=== PATIENT | female | born 1985 | race Caucasian/White ===

== ENCOUNTER 2020-11-05 17:36 | Emergency (ER) | payer BC, OTHER ==
[~2020-11-05] VITALS: Ht 152.4 cm; Wt 84.1 kg
--- NOTE | 2020-11-05 19:19 | REP ---
INDICATION: ?retained products. COMPARISON: Comparison pelvic sonography is from a June 17, 2009.. TECHNIQUE: Transabdominal and transvaginal scanning were performed. FINDINGS: Uterine dimensions are normal at 9.2 x 4.4 x 5.4 cm. Endometrial echo is 1.2 cm thick and centrally placed. No free fluid is seen in the cul-de-sac. Visualized bladder sandoval are smooth. No focal uterine mass lesion is seen. Endometrium is somewhat heterogeneous. No evidence of endometrial mass or hyperechoic tissue to suggest retained products of conception however. The right ovary has dimensions of 4.3 x 3.8 x 3.8 cm. It's Doppler flow is normal with a resistive index of 0.43. There is a 3.7 x 3.2 x 3.3 cm right ovarian cyst. The left ovary dimensions are normal as well at 4.6 x 3.6 x 4.2 cm. It's Doppler flow was normal with resistive index of 0.64. There is a complex cystic structure in the left ovary measuring 3.7 x 3.4 x 2.8 cm. This contains septations. IMPRESSION: Unremarkable uterus. There is a simple cyst in the right ovary measuring 3.7 cm. Complex cystic lesion is seen in the left ovary measuring 3.7 cm as well. No free fluid.. <Electronically signed by Riki Kaiser > 11/05/201915
[2020-11-05 20:25] LABS: BASO # 0.1 10^3/uL (0.0-0.2); BASO % 0.7 % (0.0-1.0); EOS # 0.1 10^3/uL (0.0-0.5); EOS % 1.7 % (0.0-3.0); HEMATOCRIT 31.8 % (36.0-47.0); HEMOGLOBIN 9.4 g/dl (12.0-15.5); LYMPH # 1.7 10^3/uL (1.5-5.0); LYMPH % 24.8 % (24.0-44.0); MEAN CORPUSCULAR HGB CONC 29.6 g/dl (32.0-36.5); MEAN CORPUSCULAR VOLUME 77.8 fl (80.0-96.0); MONO # 0.7 10^3/uL (0.0-0.8); MONO % 10.3 % (2.0-8.0); NEUTROPHILS # 4.4 10^3/uL (1.5-8.5); NEUTROPHILS % 62.2 % (36.0-66.0); PLATELET COUNT, AUTOMATED 253 10^3/uL (150-450); RED BLOOD COUNT 4.09 10^6/uL (4.00-5.40)
[2020-11-05 20:48] LABS: BLOOD UREA NITROGEN 10 MG/DL (7-18); CALCIUM LEVEL 9.1 MG/DL (8.5-10.1); CARBON DIOXIDE LEVEL 29 MEQ/L (21-32); CHLORIDE LEVEL 107 MEQ/L (98-107); CREATININE FOR GFR 0.55 MG/DL (0.55-1.30); GLOMERULAR FILTRATION RATE > 60.0 (>60); GLUCOSE, FASTING 86 MG/DL (70-100); HCG, SERUM QUANTITATIVE 67 MIU/ML; POTASSIUM SERUM 3.8 MEQ/L (3.5-5.1); SODIUM LEVEL 141 MEQ/L (136-145)
[2020-11-05 21:01] VITALS: BP 133/68
== END 2020-11-05 21:02 | disposition home or self-care (01) ==
LOC: M ED 17:36
DX: N83.299 Other ovarian cyst, unspecified side (principal); D50.9 Iron deficiency anemia, unspecified; R56.9 Unspecified convulsions; J45.909 Unspecified asthma, uncomplicated; F41.9 Anxiety disorder, unspecified

== ENCOUNTER → 2021-06-03 | Outpatient (REF) | LOC: M LABSMTC 10:22 | PROVIDERS: ATTEND Family Medicine | DX: Z20.822 Contact with and (suspected) exposure to COVID-19 (principal) ==

== ENCOUNTER → 2021-08-11 | Outpatient (CLI) | payer BC ==
--- NOTE | 2021-08-11 17:23 | REP ---
INDICATION: PELVIC AND PERINEAL PAIN COMPARISON: 11/05/2020 TECHNIQUE: Transabdominal pelvic ultrasound followed by transvaginal examination for better evaluation of the endometrium and adnexa with color Doppler evaluation of the ovaries. FINDINGS: Bladder is unremarkable and measures 4.8 x 4.0 x 6.4 cm. Normal anteverted uterus measures 7.9 x 3.7 x 4.6 cm. The endometrial complex measures 11.1 mm thickness. No discrete uterine or endometrial abnormalities are appreciated. Bilateral ovaries are normal in appearance and vascularity without evidence for torsion. Right ovary measures 2.9 x 2.1 x 2.6 cm; R I = 0.56. Left ovary measures 2.9 x 1.6 x 2.2 cm; R I = 0.56. No pelvic fluid or adnexal mass lesion. IMPRESSION: Normal pelvic ultrasound. Previously noted simple and complex ovarian cysts have resolved. <Electronically signed by Rene Rod > 08/11/21 [id number]
== END ==
LOC: M RAD 16:40
PROVIDERS: ATTEND Advanced Practice Midwife
DX: R10.2 Pelvic and perineal pain (principal)

== ENCOUNTER → 2021-09-16 | Outpatient (REF) | LOC: M LABSMTC 10:47 | PROVIDERS: ATTEND Family Medicine | DX: Z20.822 Contact with and (suspected) exposure to COVID-19 (principal) ==

== ENCOUNTER → 2021-09-19 | Outpatient (REF) | LOC: M LABSMTC 10:10 | PROVIDERS: ATTEND Family Medicine | DX: Z20.828 Contact with and (suspected) exposure to other viral communicable diseases (principal) ==

== ENCOUNTER 2022-05-25 11:37 | Emergency (ER) | payer BC ==
[~2022-05-25] VITALS: Ht 165.1 cm; Wt 79.6 kg
[2022-05-25 12:11] LABS: BASO # 0.1 10^3/uL (0.0-0.2); BASO % 0.9 % (0.0-1.0); EOS # 0.1 10^3/uL (0.0-0.5); EOS % 1.4 % (0.0-3.0); HEMATOCRIT 31.4 % (36.0-47.0); LYMPH # 1.1 10^3/uL (1.5-5.0); LYMPH % 19.8 % (24.0-44.0); MEAN CORPUSCULAR HEMOGLOBIN 21.8 pg (27.0-33.0); MEAN CORPUSCULAR HGB CONC 28.7 g/dl (32.0-36.5); MEAN CORPUSCULAR VOLUME 76.2 fl (80.0-96.0); MONO # 0.5 10^3/uL (0.0-0.8); MONO % 8.9 % (2.0-8.0); NEUTROPHILS # 3.9 10^3/uL (1.5-8.5); NEUTROPHILS % 68.8 % (36.0-66.0); PLATELET COUNT, AUTOMATED 265 10^3/uL (150-450); RED BLOOD COUNT 4.12 10^6/uL (4.00-5.40); WHITE BLOOD COUNT 5.6 10^3/uL (4.0-10.0)
[2022-05-25 12:32] LABS: HCG, SERUM QUALITATIVE NEGATIVE (NEGATIVE); INR 1.04; PROTHROMBIN TIME 13.8 SECONDS (12.5-14.5)
[2022-05-25 12:33] LABS: PARTIAL THROMBOPLASTIN TIME 28.9 SECONDS (24.8-34.2)
[2022-05-25 12:48] LABS: ALBUMIN 3.9 GM/DL (3.2-5.2); ALT/SGPT 23 U/L (12-78); BILIRUBIN,DIRECT 0.2 MG/DL (0.0-0.2); BILIRUBIN,TOTAL 0.6 MG/DL (0.2-1.0); BLOOD UREA NITROGEN 7 MG/DL (7-18); CALCIUM LEVEL 8.9 MG/DL (8.5-10.1); CARBON DIOXIDE LEVEL 27 MEQ/L (21-32); CHLORIDE LEVEL 105 MEQ/L (98-107); CREATININE FOR GFR 0.59 MG/DL (0.55-1.30); FREE T4 0.84 NG/DL (0.76-1.46); GLOMERULAR FILTRATION RATE > 60.0 (>60); GLUCOSE, FASTING 83 MG/DL (70-100); LIPASE 140 U/L (73-393); SODIUM LEVEL 140 MEQ/L (136-145); TOTAL PROTEIN 7.1 GM/DL (6.4-8.2)
[2022-05-25 12:51] LABS: CPK CREATINE PHOSPHOKINASE 46 U/L (26-192); D-DIMER QUANT 344.29 ng/ml (<500)
[2022-05-25 13:09] VITALS: BP 121/71
== END 2022-05-25 13:24 | disposition home or self-care (01) ==
LOC: M ED 11:37
DX: R07.89 Other chest pain (principal); D64.9 Anemia, unspecified; R00.2 Palpitations; R56.9 Unspecified convulsions; F41.9 Anxiety disorder, unspecified; Z82.49 Family history of ischemic heart disease and other diseases of the circulatory system

== ENCOUNTER → 2022-10-18 | Outpatient (CLI) | payer BC ==
[2022-10-18 10:46] LABS: HEMATOCRIT 36.3 % (36.0-47.0); HEMOGLOBIN 11.3 g/dl (12.0-15.5); MEAN CORPUSCULAR HEMOGLOBIN 24.4 pg (27.0-33.0); MEAN CORPUSCULAR HGB CONC 31.1 g/dl (32.0-36.5); MEAN CORPUSCULAR VOLUME 78.4 fl (80.0-96.0); PLATELET COUNT, AUTOMATED 206 10^3/uL (150-450); RED BLOOD COUNT 4.63 10^6/uL (4.00-5.40); WHITE BLOOD COUNT 3.9 10^3/uL (4.0-10.0)
[2022-10-18 11:05] LABS: BLOOD UREA NITROGEN 13 MG/DL (9-23); CALCIUM LEVEL 9.2 MG/DL (8.5-10.1); CARBON DIOXIDE LEVEL 29 MMOL/L (20-31); CHLORIDE LEVEL 105 MMOL/L (98-107); CHOLESTEROL LEVEL 170 MG/DL (<200); CHOLESTEROL RISK RATIO 2.33 (<5); CREATININE FOR GFR 0.56 MG/DL (0.55-1.30); GLOMERULAR FILTRATION RATE > 60.0 (>60); GLUCOSE, FASTING 82 MG/DL (60-100); HDL CHOLESTEROL 72.8 MG/DL (>40); IRON (FE) 22 UG/DL (50-170); LDL CHOLESTEROL 85.6 MG/DL (<100); NON-HDL-C 97 MG/DL; PERCENT SATURATION 5.6 % (13.2-45.0); POTASSIUM SERUM 4.4 MMOL/L (3.5-5.1); SODIUM LEVEL 139 MMOL/L (136-145); TOTAL IRON BINDING CAPACITY 391 UG/DL (250-425); TRIGLYCERIDES LEVEL 58 MG/DL (<150)
[2022-10-18 11:07] LABS: FERRITIN 3.8 NG/ML (7.3-270.7); TOTAL 25(OH) VITAMIN D 36.3 NG/ML (20.0-100.0)
== END ==
LOC: M LAB 09:11
PROVIDERS: ATTEND Nurse Practitioner Family
DX: F41.9 Anxiety disorder, unspecified (principal)

== ENCOUNTER → 2022-10-20 | Outpatient (REF) | payer BC ==
[2022-10-20 17:47] LABS: FOLATE 22.39 NG/ML (>5.4)
== END ==
LOC: M SFHCCLAY 14:32
PROVIDERS: ATTEND Nurse Practitioner Family
DX: D50.9 Iron deficiency anemia, unspecified (principal)

== ENCOUNTER 2022-11-17 09:02 | Outpatient (CLI) | payer BC ==
[~2022-11-17] VITALS: Ht 152.4 cm; Wt 75.9 kg
[~2022-11-17 09:02] MED LIST: IRON SUCROSE 25 MG in NS 23.75 ML IV ONE; IRON SUCROSE 475 MG in NS 250 ML IV ONE
[2022-11-17] MEDS ORDERED: IRON SUCROSE 475 MG in NS 250 ML IV ONE (09:30)
[2022-11-17] MEDS ORDERED: IRON SUCROSE 25 MG in NS 23.75 ML IV ONE (09:30)
[2022-11-17 09:33] VITALS: BP 120/56
[2022-11-17 10:40] VITALS: BP 118/60
[2022-11-17 11:45] VITALS: BP 121/58
[2022-11-17 13:00] VITALS: BP 116/61
[2022-11-17 14:30] VITALS: BP 119/67
== END 2022-11-17 14:30 | disposition home or self-care (01) ==
LOC: M INFU 09:02
PROVIDERS: ATTEND Nurse Practitioner Family
DX: D50.9 Iron deficiency anemia, unspecified (principal)
CPT/HCPCS: 96365; J1756

== ENCOUNTER 2023-02-05 17:17 | Emergency (ER) | payer BC ==
[~2023-02-05] VITALS: Ht 152.4 cm; Wt 75.8 kg
[2023-02-05 18:51] LABS: APPEARANCE, URINE CLEAR (CLEAR); BACTERIA, URINE AUTO 1+ (NEGATIVE); BILIRUBIN, URINE AUTO NEGATIVE (NEGATIVE); BLOOD, URINE BLOOD 1+ (NEGATIVE); COLOR, URINE STRAW (YELLOW); GLUCOSE, URINE (UA) AUTO NEGATIVE (NEGATIVE); KETONE, URINE AUTO NEGATIVE (NEGATIVE); LEUKOCYTE ESTERASE, URINE AUTO NEGATIVE (NEGATIVE); MUCUS, URINE SMALL (NEGATIVE); NITRITE, URINE AUTO NEGATIVE (NEGATIVE); PROTEIN, URINE AUTO NEGATIVE (NEGATIVE); RBC, URINE AUTO 1 /HPF (0-3); SPECIFIC GRAVITY URINE AUTO 1.009 (1.002-1.035); SQUAMOUS EPITHELIAL CELL UR AU 0 /HPF (0-6); UROBILINOGEN, URINE AUTO 0.2 mg/dL (0.0-2.0); WBC, URINE AUTO 1 /HPF (0-3)
[2023-02-05 19:34] LABS: BASO % 0.6 % (0.0-1.0); EOS # 0.1 10^3/uL (0.0-0.5); EOS % 1.3 % (0.0-3.0); HEMATOCRIT 37.9 % (36.0-47.0); HEMOGLOBIN 12.3 g/dl (12.0-15.5); LYMPH # 1.5 10^3/uL (1.5-5.0); LYMPH % 21.5 % (24.0-44.0); MEAN CORPUSCULAR HEMOGLOBIN 28.3 pg (27.0-33.0); MEAN CORPUSCULAR HGB CONC 32.5 g/dl (32.0-36.5); MEAN CORPUSCULAR VOLUME 87.1 fl (80.0-96.0); MONO # 0.6 10^3/uL (0.0-0.8); MONO % 8.2 % (2.0-8.0); NEUTROPHILS # 4.6 10^3/uL (1.5-8.5); NEUTROPHILS % 68.1 % (36.0-66.0); PLATELET COUNT, AUTOMATED 205 10^3/uL (150-450); RED BLOOD COUNT 4.35 10^6/uL (4.00-5.40); WHITE BLOOD COUNT 6.8 10^3/uL (4.0-10.0)
[2023-02-05 20:07] LABS: LIPASE 39 U/L (12-53)
[2023-02-05 20:10] LABS: ALBUMIN 4.4 G/DL (3.2-5.2); ALKALINE PHOSPHATASE 59 U/L (46-116); ALT/SGPT 14 U/L (7.0-40); AST/SGOT 13 U/L (<34); BILIRUBIN,DIRECT 0.2 MG/DL (<0.4); BILIRUBIN,TOTAL 0.6 MG/DL (0.3-1.2); BLOOD UREA NITROGEN 10 MG/DL (9-23); CALCIUM LEVEL 9.4 MG/DL (8.5-10.1); CARBON DIOXIDE LEVEL 27 MMOL/L (20-31); CHLORIDE LEVEL 105 MMOL/L (98-107); CREATININE FOR GFR 0.54 MG/DL (0.55-1.30); GLOMERULAR FILTRATION RATE > 60.0 (>60); GLUCOSE, FASTING 81 MG/DL (60-100); POTASSIUM SERUM 3.9 MMOL/L (3.5-5.1); SODIUM LEVEL 138 MMOL/L (136-145); TOTAL PROTEIN 7.1 G/DL (5.7-8.2)
[2023-02-05] MEDS ORDERED: ACETAMINOPHEN 500 MG TAB PO ONE (20:45)
[2023-02-05] MEDS ORDERED: ISOVUE-370 76% 100ML VIAL As Ordered ONE (20:52)
[2023-02-05 21:21] LABS: CK-MB VALUE MASS < 1.0 NG/ML (<3.6)
[2023-02-05 21:25] LABS: CPK CREATINE PHOSPHOKINASE 44 U/L (34-145); MB/CK RELATIVE INDEX 2.27 (< OR =4)
[2023-02-05 22:47] VITALS: BP 128/83; TEMP 97.9; O2SAT 99
== END 2023-02-05 22:47 | disposition home or self-care (01) ==
LOC: M ED 17:17
DX: R10.9 Unspecified abdominal pain (principal); K59.00 Constipation, unspecified; J45.909 Unspecified asthma, uncomplicated; R56.9 Unspecified convulsions; D64.9 Anemia, unspecified
CPT/HCPCS: 74177; 80048; 80076; 81001; 82550; 82553; 83690; 84484; 85025; 93005; 93041; 99284; Q9967

== ENCOUNTER → 2023-07-09 | Outpatient (REF) ==
[2023-07-09 12:20] LABS: RSV AMPLIFICATION NEGATIVE (NEGATIVE)
== END ==
LOC: M EMP 07:50
PROVIDERS: ATTEND Family Medicine
DX: Z11.52 Encounter for screening for COVID-19 (principal)

== ENCOUNTER → 2023-10-12 | Outpatient (REF) | payer BC ==
[2023-10-12 18:06] LABS: BASO # 0.1 10^3/uL (0.0-0.2); BASO % 1.1 % (0.0-1.0); EOS # 0.1 10^3/uL (0.0-0.5); EOS % 1.5 % (0.0-3.0); HEMATOCRIT 29.7 % (36.0-47.0); HEMOGLOBIN 8.6 g/dl (12.0-15.5); LYMPH # 1.1 10^3/uL (1.5-5.0); LYMPH % 23.7 % (24.0-44.0); MEAN CORPUSCULAR HEMOGLOBIN 20.4 pg (27.0-33.0); MEAN CORPUSCULAR VOLUME 70.5 fl (80.0-96.0); MONO # 0.5 10^3/uL (0.0-0.8); NEUTROPHILS # 2.9 10^3/uL (1.5-8.5); NEUTROPHILS % 62.5 % (36.0-66.0); PLATELET COUNT, AUTOMATED 234 10^3/uL (150-450); RED BLOOD COUNT 4.21 10^6/uL (4.00-5.40); WHITE BLOOD COUNT 4.6 10^3/uL (4.0-10.0)
[2023-10-12 18:16] LABS: TOTAL IRON BINDING CAPACITY 421 UG/DL (250-425)
[2023-10-12 18:17] LABS: ALBUMIN 4.1 G/DL (3.2-5.2); ALKALINE PHOSPHATASE 51 U/L (46-116); ALT/SGPT 19 U/L (7.0-40); AST/SGOT 14 U/L (<34); BILIRUBIN,TOTAL 0.8 MG/DL (0.3-1.2); BLOOD UREA NITROGEN 13 MG/DL (9-23); CALCIUM LEVEL 9.3 MG/DL (8.5-10.1); CARBON DIOXIDE LEVEL 26 MMOL/L (20-31); CHLORIDE LEVEL 108 MMOL/L (98-107); CHOLESTEROL RISK RATIO 2.36 (<5); GLOMERULAR FILTRATION RATE > 60.0 (>60); GLUCOSE, FASTING 82 MG/DL (60-100); HDL CHOLESTEROL 74.7 MG/DL (>40); IRON (FE) 18 UG/DL (50-170); LDL CHOLESTEROL 92.1 MG/DL (<100); NON-HDL-C 102.3 MG/DL; PERCENT SATURATION 4.3 % (13.2-45.0); POTASSIUM SERUM 4.5 MMOL/L (3.5-5.1); SODIUM LEVEL 139 MMOL/L (136-145)
[2023-10-12 18:21] LABS: FERRITIN 1.8 NG/ML (7.3-270.7); FREE T4 0.93 NG/DL (0.89-1.76); THYROID STIMULATING HORMONE 1.074 uIU/ML (0.55-4.78)
== END ==
LOC: M SFHCCLAY 11:27
PROVIDERS: ATTEND Nurse Practitioner Family
DX: D50.9 Iron deficiency anemia, unspecified (principal); F41.9 Anxiety disorder, unspecified; Z13.1 Encounter for screening for diabetes mellitus; E55.9 Vitamin D deficiency, unspecified

== ENCOUNTER 2023-11-12 10:18 | Outpatient (CLI) | payer BC ==
[~2023-11-12] VITALS: Ht 152.4 cm; Wt 75.0 kg
[2023-11-12] MEDS ORDERED: IRON SUCROSE 25 MG in NS 23.75 ML IV ONE (10:30)
[2023-11-12] MEDS ORDERED: IRON SUCROSE 475 MG in NS 250 ML IV ONE (10:30)
[2023-11-12 10:53] VITALS: BP 115/56; O2SAT 100
[2023-11-12] MEDS: IRON SUCROSE 500 MG in NS 250 ML OVER 4 HRS IV ONE (11:21)
[2023-11-12 13:00] VITALS: BP 112/56; O2SAT 98
[2023-11-12 14:58] VITALS: BP 106/58; O2SAT 100
[2023-11-12 15:33] VITALS: BP 111/55; O2SAT 100
== END 2023-11-12 15:35 | disposition home or self-care (01) ==
LOC: M INFU 10:18
PROVIDERS: ATTEND Nurse Practitioner Family
DX: D50.9 Iron deficiency anemia, unspecified (principal)
CPT/HCPCS: 96365; 96366; J1756

== ENCOUNTER 2023-11-26 07:00 | Outpatient (CLI) | payer BC ==
[~2023-11-26] VITALS: Ht 152.4 cm; Wt 75.0 kg
[2023-11-26 07:12] VITALS: BP 121/57; O2SAT 100
[2023-11-26] MEDS: IRON SUCROSE 500 MG in NS 250 ML OVER 4 HRS IV ONE (07:36)
[2023-11-26 08:30] VITALS: BP 111/55; O2SAT 97
[2023-11-26 09:30] VITALS: BP 120/60; O2SAT 99
[2023-11-26 10:30] VITALS: BP 112/59; O2SAT 98
[2023-11-26 11:25] VITALS: BP 141/76; O2SAT 98
== END 2023-11-26 11:30 ==
LOC: M INFU 07:00
PROVIDERS: ATTEND Nurse Practitioner Family
DX: D50.9 Iron deficiency anemia, unspecified (principal)
CPT/HCPCS: 96365; 96366; J1756

== ENCOUNTER → 2023-11-28 | Outpatient (REF) | LOC: M EMP 11:14 | PROVIDERS: ATTEND Family Medicine | DX: Z01.89 Encounter for other specified special examinations (principal) ==

== ENCOUNTER → 2023-11-28 | Outpatient (REF) | LOC: M EMP 09:46 | PROVIDERS: ATTEND Family Medicine | DX: Z01.89 Encounter for other specified special examinations (principal) ==

== ENCOUNTER 2023-12-24 17:47 | Emergency (ER) | payer BC ==
[2023-12-24 17:49] VITALS: TEMP 98.2
[2023-12-24] MEDS ORDERED: ZOLO100T (17:54)
[2023-12-24 18:40] LABS: D-DIMER QUANT < 0.27 ug/mL (<0.5); INR 1.11
[2023-12-24 18:49] LABS: BLOOD UREA NITROGEN 17 MG/DL (9-23); CALCIUM LEVEL 9.7 MG/DL (8.5-10.1); CARBON DIOXIDE LEVEL 30 MMOL/L (20-31); CHLORIDE LEVEL 103 MMOL/L (98-107); CK-MB VALUE MASS < 1.0 NG/ML (<3.6); CPK CREATINE PHOSPHOKINASE 52 U/L (34-145); CREATININE FOR GFR 0.66 MG/DL (0.55-1.30); GLOMERULAR FILTRATION RATE > 60.0 (>60); GLUCOSE, FASTING 75 MG/DL (60-100); MB/CK RELATIVE INDEX 1.92 (< OR =4); POTASSIUM SERUM 4.4 MMOL/L (3.5-5.1); SODIUM LEVEL 138 MMOL/L (136-145)
[2023-12-24 18:55] LABS: BASO # 0.1 10^3/uL (0.0-0.2); BASO % 0.9 % (0.0-1.0); EOS # 0.1 10^3/uL (0.0-0.5); EOS % 2.1 % (0.0-3.0); HEMATOCRIT 36.2 % (36.0-47.0); HEMOGLOBIN 11.3 g/dl (12.0-15.5); LYMPH # 1.4 10^3/uL (1.5-5.0); LYMPH % 23.7 % (24.0-44.0); MEAN CORPUSCULAR HEMOGLOBIN 24.9 pg (27.0-33.0); MEAN CORPUSCULAR HGB CONC 31.2 g/dl (32.0-36.5); MEAN CORPUSCULAR VOLUME 79.7 fl (80.0-96.0); MONO # 0.5 10^3/uL (0.0-0.8); MONO % 8.6 % (2.0-8.0); NEUTROPHILS # 3.7 10^3/uL (1.5-8.5); NEUTROPHILS % 64.3 % (36.0-66.0); PLATELET COUNT, AUTOMATED 192 10^3/uL (150-450); RED BLOOD COUNT 4.54 10^6/uL (4.00-5.40); WHITE BLOOD COUNT 5.7 10^3/uL (4.0-10.0)
[2023-12-24 19:09] LABS: HCG, SERUM QUALITATIVE NEGATIVE (NEGATIVE)
[2023-12-24] MEDS: KETOROLAC 30 MG/ML 1ML VIAL IV ONE (19:53)
[2023-12-24 20:24] LABS: CK-MB VALUE MASS < 1.0 NG/ML (<3.6)
[2023-12-24 20:27] LABS: CPK CREATINE PHOSPHOKINASE 57 U/L (34-145); MB/CK RELATIVE INDEX 1.75 (< OR =4)
[2023-12-24 20:47] VITALS: O2SAT 100
[2023-12-24] MEDS ORDERED: PROT1TAB2 PO (21:03)
[2023-12-24 21:11] VITALS: BP 143/64
== END 2023-12-24 21:12 | disposition home or self-care (01) ==
LOC: M ED 17:47
DX: R07.9 Chest pain, unspecified (principal); R00.1 Bradycardia, unspecified; G40.909 Epilepsy, unspecified, not intractable, without status epilepticus; J45.909 Unspecified asthma, uncomplicated; D64.9 Anemia, unspecified; Z79.899 Other long term (current) drug therapy
CPT/HCPCS: 71046; 80048; 82550; 82553; 84484; 84703; 85025; 85379; 85610; 93005; 96374; 99284; J1885

== ENCOUNTER → 2024-04-07 | Outpatient (REF) ==
[~2024-04-07] MED LIST changes: -IRON SUCROSE 25 MG in NS 23.75 ML IV ONE; -IRON SUCROSE 475 MG in NS 250 ML IV ONE; +PROT1TAB2 PO; +ZOLO100T
== END ==
LOC: M EMP 08:07
PROVIDERS: ATTEND Family Medicine
DX: Z11.52 Encounter for screening for COVID-19 (principal)

== ENCOUNTER → 2024-06-05 | Outpatient (CLI) | payer BC ==
[2024-06-05 18:25] LABS: HEMATOCRIT 29.6 % (36.0-47.0); HEMOGLOBIN 9.4 g/dl (12.0-15.5); MEAN CORPUSCULAR HEMOGLOBIN 25.9 pg (27.0-33.0); MEAN CORPUSCULAR HGB CONC 31.8 g/dl (32.0-36.5); MEAN CORPUSCULAR VOLUME 81.5 fl (80.0-96.0); PLATELET COUNT, AUTOMATED 241 10^3/uL (150-450); RED BLOOD COUNT 3.63 10^6/uL (4.00-5.40); WHITE BLOOD COUNT 5.2 10^3/uL (4.0-10.0)
[2024-06-05 18:57] LABS: FERRITIN 3.2 NG/ML (7.3-270.7)
== END ==
LOC: M LAB 17:10
PROVIDERS: ATTEND Nurse Practitioner Family
DX: D50.9 Iron deficiency anemia, unspecified (principal)

== ENCOUNTER → 2024-06-13 | Outpatient (REF) | payer BC | LOC: M SFHCCLAY 10:22 | PROVIDERS: ATTEND Nurse Practitioner Family | DX: D50.9 Iron deficiency anemia, unspecified (principal) ==

== ENCOUNTER 2024-07-01 09:07 | Outpatient (CLI) | payer BC ==
[~2024-07-01] VITALS: Ht 152.4 cm; Wt 77.3 kg
[~2024-07-01 09:07] MED LIST changes: +ALBUTEROL SULFATE 2.5MG/0.5ML INH NEB SOLN INH PRN; +EPINEPHrine INJ 1 MG/ML 1ML AMP IM PRN; +NS 1,000 ML IV SCH; +diphenhydrAMINE 50MG/ML VIAL IV PRN; +methylPREDNISolone 125MG 2ML VIAL IV PRN
[2024-07-01 09:30] VITALS: BP 130/89; O2SAT 100
[2024-07-01] MEDS: IRON SUCROSE 500 MG in NS 250 ML OVER 4 HRS IV ONE (10:15)
[2024-07-01 11:15] VITALS: BP 122/75; O2SAT 100
[2024-07-01 12:15] VITALS: BP 129/74; O2SAT 100
[2024-07-01 13:15] VITALS: BP 137/79; O2SAT 100
[2024-07-01 14:15] VITALS: BP 127/63; O2SAT 95
== END 2024-07-01 14:19 | disposition home or self-care (01) ==
LOC: M INFU 09:07
PROVIDERS: ATTEND Nurse Practitioner Family
DX: D50.9 Iron deficiency anemia, unspecified (principal)
CPT/HCPCS: 96365; 96366; J1756

== ENCOUNTER → 2024-07-01 | Outpatient (CLI) | payer BC ==
[2024-07-01 15:29] LABS: HEMOGLOBIN A1c 4.9 % (4.0-6.0)
[2024-07-04 05:32] LABS: DEHYDROEPIANDROSTERONE SULFATE 79 mcg/dL (19-237)
== END ==
LOC: M LAB 14:22
PROVIDERS: ATTEND Nurse Practitioner Family
DX: N92.0 Excessive and frequent menstruation with regular cycle (principal)

== ENCOUNTER → 2024-07-08 | Outpatient (CLI) | payer BC ==
[~2024-07-08] MED LIST changes: -ALBUTEROL SULFATE 2.5MG/0.5ML INH NEB SOLN INH PRN; -EPINEPHrine INJ 1 MG/ML 1ML AMP IM PRN; -NS 1,000 ML IV SCH; -diphenhydrAMINE 50MG/ML VIAL IV PRN; -methylPREDNISolone 125MG 2ML VIAL IV PRN
== END ==
LOC: M RAD 14:52
PROVIDERS: ATTEND Nurse Practitioner Family
DX: N94.6 Dysmenorrhea, unspecified (principal); R93.41 Abnormal radiologic findings on diagnostic imaging of renal pelvis, ureter, or bladder

== ENCOUNTER 2024-07-16 08:20 | Outpatient (CLI) | payer BC ==
[~2024-07-16] VITALS: Ht 152.4 cm; Wt 77.2 kg
[~2024-07-16 08:20] MED LIST changes: +ALBUTEROL SULFATE 2.5MG/0.5ML INH NEB SOLN INH PRN; +EPINEPHrine INJ 1 MG/ML 1ML AMP IM PRN; +NS 1,000 ML IV SCH; +diphenhydrAMINE 50MG/ML VIAL IV PRN; +methylPREDNISolone 125MG 2ML VIAL IV PRN
[2024-07-16 08:51] VITALS: BP 114/59; O2SAT 99
[2024-07-16] MEDS: IRON SUCROSE 500 MG in NS 250 ML OVER 4 HRS IV ONE (08:56)
[2024-07-16 10:16] VITALS: BP 107/61; O2SAT 100
[2024-07-16 11:15] VITALS: BP 110/68; O2SAT 100
[2024-07-16 12:10] VITALS: BP 122/70; O2SAT 100
[2024-07-16 13:00] VITALS: BP 118/54; O2SAT 100
== END 2024-07-16 13:10 ==
LOC: M INFU 08:20
PROVIDERS: ATTEND Nurse Practitioner Family
DX: D50.9 Iron deficiency anemia, unspecified (principal)
CPT/HCPCS: 96365; 96366; J1756

== ENCOUNTER → 2024-07-31 | Outpatient (REF) | payer BC ==
[~2024-07-31] MED LIST changes: -ALBUTEROL SULFATE 2.5MG/0.5ML INH NEB SOLN INH PRN; -EPINEPHrine INJ 1 MG/ML 1ML AMP IM PRN; -NS 1,000 ML IV SCH; -diphenhydrAMINE 50MG/ML VIAL IV PRN; -methylPREDNISolone 125MG 2ML VIAL IV PRN
[2024-08-05 11:02] LABS: HPV APTIMA Not Detected (Not Detected)
== END ==
LOC: M SFHCWAGY 10:21
PROVIDERS: ATTEND Nurse Practitioner Family
DX: Z12.4 Encounter for screening for malignant neoplasm of cervix (principal); Z77.9 Other contact with and (suspected) exposures hazardous to health; R87.610 Atypical squamous cells of undetermined significance on cytologic smear of cervix (ASC-US)
CPT/HCPCS: 87624; G0123

== ENCOUNTER → 2024-08-26 | Outpatient (CLI) | payer BC | LOC: M WHC 15:47 | PROVIDERS: ATTEND Nurse Practitioner Family | DX: Z12.31 Encounter for screening mammogram for malignant neoplasm of breast (principal); R92.8 Other abnormal and inconclusive findings on diagnostic imaging of breast ==

== ENCOUNTER → 2024-09-16 | Outpatient (CLI) | payer BC | LOC: M WHC 13:11 | PROVIDERS: ATTEND Nurse Practitioner Family | DX: R92.8 Other abnormal and inconclusive findings on diagnostic imaging of breast (principal); R92.321 Mammographic fibroglandular density, right breast; N60.11 Diffuse cystic mastopathy of right breast | CPT/HCPCS: 76642; 77065; G0279 ==

== ENCOUNTER 2024-10-14 10:54 | Day surgery (SDC) | payer BC ==
[~2024-10-14] VITALS: Ht 152.4 cm; Wt 78.3 kg
[~2024-10-14 10:54] MED LIST changes: +IRON65TA2 PO; +LIDOCAINE 2% 100MG/5ML SDV (FOR ANES.) As Ordered ONE; +PROBCAP14 PO; +RA T500C2 PO; -ZOLO100T; +ZOLO100T PO; +propofoL 200 MG/20 ML VIAL As Ordered ONE
[2024-10-14 13:03] VITALS: TEMP 98.7
[2024-10-14 13:18] VITALS: BP 110/59; O2SAT 99
== END 2024-10-14 13:37 | disposition home or self-care (01) ==
LOC: M OPP 10:54
PROVIDERS: ATTEND Surgery
DX: K64.0 First degree hemorrhoids (principal); D50.9 Iron deficiency anemia, unspecified; K29.70 Gastritis, unspecified, without bleeding; Z79.899 Other long term (current) drug therapy; J45.909 Unspecified asthma, uncomplicated

== ENCOUNTER → 2024-10-16 | Outpatient (REF) | payer BC ==
[~2024-10-16] MED LIST changes: -LIDOCAINE 2% 100MG/5ML SDV (FOR ANES.) As Ordered ONE; -propofoL 200 MG/20 ML VIAL As Ordered ONE
== END ==
LOC: M SFHCWAGY 17:45
PROVIDERS: ATTEND Nurse Practitioner Family
DX: Z12.4 Encounter for screening for malignant neoplasm of cervix (principal); R87.615 Unsatisfactory cytologic smear of cervix

== ENCOUNTER → 2024-11-17 | Outpatient (CLI) | payer BC ==
[~2024-11-17] MED LIST changes: +E-Z-GAS II EFFERVESCENT PACKET (SODIUM BICARB./CITRIC ACID/SIMETHICONE) As Ordered ONE; +E-Z-HD 98% w/w 340GM SUSP BTL As Ordered ONE; +E-Z-PAQUE 96% w/w SUSP 176GM BTL As Ordered ONE
== END ==
LOC: M RAD 10:59
PROVIDERS: ATTEND Physician Assistant
DX: R13.10 Dysphagia, unspecified (principal)

== ENCOUNTER 2024-12-03 17:07 | Emergency (ER) | payer BC ==
[~2024-12-03] VITALS: Ht 152.4 cm; Wt 82.9 kg
[~2024-12-03 17:07] MED LIST changes: -E-Z-GAS II EFFERVESCENT PACKET (SODIUM BICARB./CITRIC ACID/SIMETHICONE) As Ordered ONE; -E-Z-HD 98% w/w 340GM SUSP BTL As Ordered ONE; -E-Z-PAQUE 96% w/w SUSP 176GM BTL As Ordered ONE
[2024-12-03 17:08] VITALS: BP 146/71; TEMP 97.2; O2SAT 98
== END 2024-12-03 18:46 | disposition left against medical advice (07) ==
LOC: M ED 17:07
DX: Z53.21 Procedure and treatment not carried out due to patient leaving prior to being seen by health care provider (principal)

== ENCOUNTER 2025-02-18 06:02 | Day surgery (SDC) | payer BC ==
[~2025-02-18] VITALS: Ht 152.4 cm; Wt 78.0 kg
[2025-02-18 07:01] LABS: PLATELET COUNT, AUTOMATED 228 10^3/uL (150-450)
[2025-02-18] MEDS ORDERED: ONDANSETRON 4MG 2ML VIAL As Ordered ONE (07:01)
[2025-02-18] MEDS ORDERED: LIDOCAINE 2% 100 MG/5 ML SDV (FOR ANES.) As Ordered ONE (07:01)
[2025-02-18] MEDS ORDERED: dexAMETHasone 4 MG/ML 1 ML VIAL As Ordered ONE (07:01)
[2025-02-18] MEDS ORDERED: KETOROLAC 30 MG/ML 1 ML VIAL As Ordered ONE (07:01)
[2025-02-18] MEDS: LR 1,000 ML IV SCH (07:03)
[2025-02-18] MEDS ORDERED: MIDAZOLAM INJ 2 MG/2 ML VIAL As Ordered ONE (07:05)
[2025-02-18] MEDS: SCOPOLAMINE 1MG TRANSDERMAL PATCH TOP ONE (07:35)
[2025-02-18] MEDS ORDERED: ACETAMINOPHEN 1000MG/100ML IV BAG As Ordered ONE (08:00)
[2025-02-18] MEDS: SILVER NITRATE APPLICATOR (1 = QTY 10) As Ordered ONE (08:10)
[2025-02-18] MEDS ORDERED: ONDA-282 PO (08:47)
[2025-02-18] MEDS ORDERED: MORPHINE 2 MG/ML 1 ML VIAL IV PRN (08:50)
[2025-02-18] MEDS ORDERED: ONDANSETRON 4MG 2ML VIAL IV PRN (08:50)
[2025-02-18 09:45] VITALS: BP 121/72; TEMP 97.3; O2SAT 100
== END 2025-02-18 09:57 | disposition home or self-care (01) ==
LOC: M SDC 06:02
PROVIDERS: ATTEND Obstetrics & Gynecology
DX: N93.9 Abnormal uterine and vaginal bleeding, unspecified (principal); N84.0 Polyp of corpus uteri; D64.9 Anemia, unspecified; F41.9 Anxiety disorder, unspecified; Z79.899 Other long term (current) drug therapy; Z87.09 Personal history of other diseases of the respiratory system
CPT/HCPCS: 36415; 58558; 85027; 86850; 86900; 86901; 88305; J0131; J1100; J1885; J2250; J2405; J3010

== ENCOUNTER → 2025-03-09 | Outpatient (CLI) | payer BC ==
[~2025-03-09] MED LIST changes: +ONDA-282 PO; -RA T500C2 PO; +TURM500C10 PO
[2025-03-09 09:36] LABS: BASO # 0.0 10^3/uL (0.0-0.2); BASO % 1.0 % (0.0-1.0); EOS # 0.1 10^3/uL (0.0-0.5); EOS % 1.5 % (0.0-3.0); LYMPH # 0.9 10^3/uL (1.5-5.0); LYMPH % 20.9 % (24.0-44.0); MONO # 0.3 10^3/uL (0.0-0.8); MONO % 8.3 % (2.0-8.0); NEUTROPHILS # 2.8 10^3/uL (1.5-8.5); NEUTROPHILS % 68.3 % (36.0-66.0); PLATELET COUNT, AUTOMATED 211 10^3/uL (150-450)
[2025-03-09 10:04] LABS: IRON (FE) 27 UG/DL (50-170)
[2025-03-09 10:05] LABS: ALT/SGPT 10 U/L (7.0-40); AST/SGOT 13 U/L (<34); CALCIUM LEVEL 9.1 MG/DL (8.5-10.1); CARBON DIOXIDE LEVEL 30 MMOL/L (20-31); CHLORIDE LEVEL 103 MMOL/L (98-107); CREATININE FOR GFR 0.66 MG/DL (0.55-1.30); GLOMERULAR FILTRATION RATE > 90.0 (>60); PERCENT SATURATION 7.0 % (13.2-45.0); POTASSIUM SERUM 4.0 MMOL/L (3.5-5.1); SODIUM LEVEL 142 MMOL/L (136-145)
[2025-03-09 10:08] LABS: HCG, SERUM QUALITATIVE NEGATIVE (NEGATIVE); LUTEINIZING HORMONE 7.1 mIU/ML
[2025-03-09 10:09] LABS: T UPTAKE 35.8 % (22.5-37.0); THYROXINE (T4) 6.5 UG/DL (4.5-10.9)
[2025-03-09 10:10] LABS: PROLACTIN 12.01 NG/ML
[2025-03-10 08:37] LABS: DEHYDROEPIANDROSTERONE SULFATE 109 mcg/dL (19-237)
== END ==
LOC: M LAB 08:59
PROVIDERS: ATTEND Dermatology
DX: L70.0 Acne vulgaris (principal); R53.82 Chronic fatigue, unspecified

== ENCOUNTER → 2025-04-16 | Outpatient (CLI) | payer BC | LOC: M WHC 09:43 | PROVIDERS: ATTEND Nurse Practitioner Family | DX: R92.8 Other abnormal and inconclusive findings on diagnostic imaging of breast (principal); R92.323 Mammographic fibroglandular density, bilateral breasts | CPT/HCPCS: 77065; G0279 ==

== ENCOUNTER → 2025-07-04 | Outpatient (CLI) | payer BC ==
[2025-07-04 11:22] LABS: ALT/SGPT 14 U/L (7.0-40); AST/SGOT 16 U/L (<34); CALCIUM LEVEL 9.6 MG/DL (8.5-10.1); CARBON DIOXIDE LEVEL 29 MMOL/L (20-31); CHLORIDE LEVEL 104 MMOL/L (98-107); CREATININE FOR GFR 0.62 MG/DL (0.55-1.30); GLOMERULAR FILTRATION RATE > 90.0 (>60); POTASSIUM SERUM 4.2 MMOL/L (3.5-5.1); SODIUM LEVEL 140 MMOL/L (136-145)
== END ==
LOC: M LAB 10:18
PROVIDERS: ATTEND Dermatology
DX: L70.0 Acne vulgaris (principal)

== ENCOUNTER → 2025-07-29 | Outpatient (REF) ==
[2025-07-29 15:01] LABS: SOFIA COVID ANTIGEN NEGATIVE (NEGATIVE)
== END ==
LOC: M EMP 12:45
PROVIDERS: ATTEND Family Medicine
DX: Z01.89 Encounter for other specified special examinations (principal)